=== PATIENT | male | born 1960 | race Caucasian/White ===

== ENCOUNTER 2019-02-12 15:25 | Emergency (ER) | payer OTHER ==
[2019-02-12] MEDS ORDERED: PROCHLORPERAZINE EDISYLATE INJ 10 MG/2 ML VIAL IV ONE (16:52)
[2019-02-12] MEDS ORDERED: DIPHENHYDRAMINE HCL 50 MG/ML VIAL IV ONE (16:52)
[2019-02-12] MEDS ORDERED: NORMAL SALINE 1000 ML 1,000 ML IV ONE (16:53)
[2019-02-12] MEDS ORDERED: KETOROLAC TROMETHAMINE INJ/PF 30 MG/1 ML SDV IV ONE (16:53)
--- NOTE | 2019-02-12 16:54 | ER Document Report ---
ED Medical Screen (RME) - General Chief Complaint: Headache Stated Complaint: HEADACHE Time Seen by Provider: 02/12/19 16:52 Primary Care Provider: EDNA CHAMBERLAIN [Primary Care Provider] - Follow up as needed Mode of Arrival: Ambulatory Information source: Patient Notes: Patient is a 58-year-old male presents emergency department chief complaint of right-sided headache that began at proximately 9:00 this morning. Patient reports had a gradual onset. He reports that he was also diagnosed with a right-sided ear infection this morning and started on antibiotics. Patient does report a history of cluster headaches, states this feels similar to that. Exam: Alert, oriented, answering all questions appropriately. No focal neurological deficits noted. I have greeted and performed a rapid initial assessment of this patient. A comprehensive ED assessment and evaluation of the patient, analysis of test results and completion of the medical decision making process will be conducted by additional ED providers. I have specifically instructed the patient or family members with the patient to immediately return to any nursing staff should anything change in the patient's condition or with their chief complaint. This medical record was dictated with voice recognizing software. There may be grammatical, syntax errors that are unintended. - Related Data Allergies/Adverse Reactions: No Known Allergies Allergy (Verified 02/12/19 15:30) Physical Exam - Vital signs Vitals: Temp Pulse Resp BP Pulse Ox 97.7 F 57 L 18 168/95 H 96 02/12/19 15:31 02/12/19 15:31 02/12/19 15:31 02/12/19 15:31 02/12/19 15:31 Course - Vital Signs Vital signs: Temp Pulse Resp BP Pulse Ox 97.7 F 57 L 18 168/95 H 96 02/12/19 15:31 02/12/19 15:31 02/12/19 15:31 02/12/19 15:31 02/12/19 15:31 Doctor's Discharge - Discharge Referrals: EDNA CHAMBERLAIN [Primary Care Provider] - Follow up as needed
--- NOTE | 2019-02-12 19:56 | ER Document Report ---
HPI - HPI Time Seen by Provider: 02/12/19 16:52 Pain Level: 3 Notes: Patient is a 58-year-old male presents emergency department chief complaint of right-sided headache that began at proximately 9:00 this morning. Patient reports had a gradual onset. He reports that he was also diagnosed with a right-sided ear infection this morning and started on antibiotics. Patient does report a history of cluster headaches, states this feels similar to that. Past Medical History - General Information source: Patient - Social History Smoking Status: Never Smoker Frequency of alcohol use: None Drug Abuse: None Family History: Reviewed & Not Pertinent - Past Medical History Cardiac Medical History: Reports: Hx Hypertension Neurological Medical History: Reports: Hx Migraine Surgical Hx: Negative - Immunizations Immunizations up to date: Yes Vertical Provider Document - CONSTITUTIONAL Notes: PHYSICAL EXAMINATION: GENERAL: Well-appearing, well-nourished and in no acute distress. HEAD: Atraumatic, normocephalic. EYES: Pupils equal round and reactive to light, extraocular movements intact, sclera anicteric, conjunctiva are normal. ENT: Nares patent, oropharynx clear without exudates. Moist mucous membranes. Right TM bulging, erythematous with fluid behind the tympanic membrane. No m astoid tenderness. NECK: Normal range of motion, supple without lymphadenopathy LUNGS: Breath sounds clear to auscultation bilaterally and equal. No wheezes rales or rhonchi. HEART: Regular rate and rhythm without murmurs ABDOMEN: Soft, nontender, nondistended abdomen. No guarding, no rebound. No masses appreciated. Musculoskeletal: Normal range of motion, no pitting or edema. No cyanosis. NEUROLOGICAL: Cranial nerves grossly intact. Normal speech, normal gait. Normal sensory, motor exams PSYCH: Normal mood, normal affect. SKIN: Warm, Dry, normal turgor, no rashes or lesions noted. Course - Re-evaluation Re-evalutation: Patient's headache was relieved with medications here in the emergency department, he was still awaiting bed placement when he came to let us know he was ready to go as his symptoms had resolved. He was brought into a triage room where additional assessment was performed. He now reports he did not get treatment for the otitis media. I will start him on amoxicillin for this. Strict ED return precautions were discussed, patient and spouse verbalized understanding and agreement with plan. The patient's emergency department workup and current diagnosis were explained to the patient and or family. Follow-up instructions were provided. Medications if prescribed were discussed. Instructions for when to return to the emergency department including specific worrisome symptoms were discussed with the patient and/or family. - Vital Signs Vital signs: Temp Pulse Resp BP Pulse Ox 97.7 F 57 L 18 168/95 H 96 02/12/19 15:31 02/12/19 15:31 02/12/19 15:31 02/12/19 15:31 02/12/19 15:31 Discharge - Discharge Clinical Impression: Headache Qualifiers: Headache type: unspecified Headache chronicity pattern: unspecified pattern Intractability: not intractable Qualified Code(s): R51 - Headache Otitis media Qualifiers: Otitis media type: unspecified Chronicity: acute Qualified Code(s): H66.90 - Otitis media, unspecified, unspecified ear Condition: Stable Disposition: HOME, SELF-CARE Additional Instructions: Otitis Media You have a middle ear infection (otitis media). This is usually a complication of a cold or sore throat. The middle ear cavity becomes filled with infection. Pressure and stretching of the ear drum cause pain. Antibiotics are required. A 10 day course is usually prescribed. A decongestant may be recommended if you have a "runny nose." You may need anesthetic drops or other pain medication. A follow-up exam may be recommended to make sure the infection has completely cleared. If the ear begins to drain, it means the ear drum has ruptured. This will usually heal spontaneously. However, it means you should keep the ear dry until re-examined by a doctor. Call the physician or return for examination at once if there is severe headache, stiff neck, confusion, increasing fever, or dizziness. You should improve significantly within two days. If you're not better, call the doctor. You have been seen in the Emergency Department (ED) for a headache. Please use Tylenol (acetaminophen) or Motrin (ibuprofen) as needed for symptoms, but only as written on the box. As we have discussed, please follow up with your primary care doctor as soon as possible regarding today's ED visit and your headache symptoms. Call your doctor or return to the ED if you have a worsening headache, sudden and severe headache, confusion, slurred speech, facial droop, weakness or numbness in any arm or leg, extreme fatigue, or other symptoms that concern you. Prescriptions: Amoxicillin 1 tab PO TID #30 tab Referrals: LOCALMD,NO [NO LOCAL MD] - Follow up as needed
[2019-02-12 20:10] VITALS: BP 166/92
== END 2019-02-12 20:14 | disposition home or self-care (01) ==
LOC: ER 15:25
DX: R51 Headache (principal); H66.90 Otitis media, unspecified, unspecified ear; I10 Essential (primary) hypertension
CPT/HCPCS: J1200; J1885; J0780; J7030; 96361; 96374; 96375; 99283

== ENCOUNTER 2019-02-20 08:30 | Emergency (ER) | payer OTHER ==
[2019-02-20] MEDS ORDERED: KETOROLAC TROMETHAMINE INJ/PF 30 MG/1 ML SDV IV ONE (09:14)
[2019-02-20] MEDS ORDERED: NORMAL SALINE 1000 ML 1,000 ML IV ONE (09:14)
[2019-02-20] MEDS ORDERED: DIPHENHYDRAMINE HCL 50 MG/ML VIAL IV ONE (09:14)
[2019-02-20] MEDS ORDERED: PROCHLORPERAZINE EDISYLATE INJ 10 MG/2 ML VIAL IV ONE (09:15)
--- NOTE | 2019-02-20 09:58 | ER Document Report ---
Entered by MILAN SCHAFFER SCRIBE 02/20/19 0914 Acting as scribe for:CINDY PETTY MD ED Headache - General Stated Complaint: HEADACHE Time Seen by Provider: 02/20/19 09:01 Primary Care Provider: DAE DAO PA-C [Primary Care Provider] - Follow up in 3-5 days Mode of Arrival: Ambulatory Information source: Patient Notes: 58 year old male with cluster headaches that presents to the emergency department today with complaints of a cluster headache. Patient states until recently, he had not had any cluster headaches for x8-10 years. Patient states the last time he had cluster headaches he seemed to get them every day for around a month. Patient reports that he was prescribed intranasal zolmitriptan in the past for these headaches and he reports that it worked remarkably well. Patient was seen here for a cluster headache x8 days ago and he then saw his PCP who prescribed him zolmitriptan again, but only gave him a box of six. Patient states this medicine has been working again for his cluster headaches, but he has used up all 6 of the treatments already. - Related Data Allergies/Adverse Reactions: No Known Allergies Allergy (Verified 02/12/19 15:30) Past Medical History - General Information source: Patient - Social History Smoking Status: Former Smoker Cigarette use (# per day): No Frequency of alcohol use: None Drug Abuse: None Lives with: Family Family History: Reviewed & Not Pertinent - Past Medical History Cardiac Medical History: Reports: Hx Hypertension Neurological Medical History: Reports: Other - cluster headaches Surgical Hx: Negative - Immunizations Immunizations up to date: Yes Review of Systems - Review of Systems Constitutional: No symptoms reported EENT: No symptoms reported Cardiovascular: No symptoms reported Respiratory: No symptoms reported Gastrointestinal: No symptoms reported Genitourinary: No symptoms reported Male Genitourinary: No symptoms reported Musculoskeletal: No symptoms reported Skin: No symptoms reported Hematologic/Lymphatic: No symptoms reported Neurological/Psychological: See HPI, Headaches -: Yes All other systems reviewed and negative Physical Exam - Vital signs Vitals: Pulse Resp BP Pulse Ox 43 L 18 161/89 H 99 02/20/19 08:47 02/20/19 08:47 02/20/19 08:47 02/20/19 08:47 - Notes Notes: Physical Exam: General: Alert, appears very uncomfortable. HEENT: Normocephalic. Atraumatic. PERRL. Extraocular movements intact. Oropharynx clear. TMs are clear bilaterally, no external canal erythema. Tenderness with percussion surrounding the zygomatic arch on the right, reports feeling pain into his jaw/teeth. Right sided temporal musculature tenderness with palpation. Neck: Supple. Non-tender. Respiratory: No respiratory distress. Clear and equal breath sounds bilaterally. Cardiovascular: Regular rate and rhythm. Abdominal: Normal Inspection. Non-tender. No distension. Normal Bowel Sounds. Back: No gross abnormalities. Extremities: Moves all four extremities. Upper extremities: Normal inspection. Normal ROM. Lower extremities: Normal inspection. No edema. Normal ROM. Neurological: Normal cognition. AAOx4. Normal speech. Photophobia. Psychological: Normal affect. Normal Mood. Skin: Warm. Dry. Normal color. Course - Re-evaluation Re-evalutation: 02/20/19 10:41 The patient reports his headache is somewhat improved, but he still has pain on the right side, particularly along his zygomatic bone where it is tender to palpate, and pain going into his teeth. We will try a pain management dose of ketamine, as some of his symptoms are suspicious for trigeminal neuralgia. 02/20/19 12:08 Patient feels much better after the ketamine. The right zygomatic region is still little tender to palpate but is much better. There is no tenderness to palpate the right TMJ. The patient would like some additional Zomig to take, since he states that seems to take his headaches away quickly. - Vital Signs Vital signs: Temp Pulse Resp BP Pulse Ox 66 16 162/99 H 99 02/20/19 11:28 02/20/19 11:28 02/20/19 11:28 02/20/19 11:28 - EKG Interpretation by Hi EKG shows normal: Sinus rhythm, [place], Intervals, QRS Complexes, ST-T Waves Rate: Normal - 50 Rhythm: Arrthymia Discharge - Discharge Clinical Impression: Migraine headache Qualifiers: Migraine type: unspecified Status migrainosus presence: without status migrainosus Intractability: not intractable Qualified Code(s): G43.909 - Migraine, unspecified, not intractable, without status migrainosus Condition: Stable Disposition: HOME, SELF-CARE Additional Instructions: Migraine Headache: The physician feels that your symptoms are due to a migraine attack. M igraines are caused by changes in the blood vessels of the head. Arteries go into spasm, often causing warning symptoms that a headache may begin soon. As the spasm goes away, the vessels dilate and throb, causing the pounding pain of a migraine headache. Migraines often cause nausea and vomiting. The treatment of headaches varies with severity and cause of pain. Not all headaches need pain shots -- in fact, there is evidence that using narcotics for headaches may make them worse in the long run. The physician will determine the therapy that's in your best interest for this particular headache. Medications are available that may prevent migraines, or stop them as they first occur. If one medication is not helpful, try another. If migraines are frequent, be patient -- follow the doctor's recommendations. Call the physician if you are worsening, or if new symptoms arise. Follow-up with your primary care provider to manage your cluster migraines. You may benefit from taking gabapentin to help manage your headaches. Do not take more than 3 doses of Zomig in any 30-day period. RETURN TO THE EMERGENCY ROOM IF ANY NEW OR WORSENING SYMPTOMS. Prescriptions: Zolmitriptan [Zomig] 5 mg PO ASDIR PRN #3 tablet PRN Reason: Referrals: DAE DAO PA-C [Primary Care Provider] - Follow up in 3-5 days Scribe Attestation: 02/20/19 09:59 I personally performed the services described in the documentation, reviewed and edited the documentation which was dictated to the scribe in my presence, and it accurately records my words and actions. I personally performed the services described in the documentation, reviewed and edited the documentation which was dictated to the scribe in my presence, and it accurately records my words and actions.
[2019-02-20] MEDS ORDERED: KETAMINE HCL INJ 500 MG/10 ML VIAL IV ONE (10:40)
[2019-02-20 12:40] VITALS: BP 164/74
--- NOTE | 2019-02-20 19:07 | EKG REPORT ---
SEVERITY:- ABNORMAL ECG - SINUS ARRHYTHMIA 39-59 PROBABLE LEFT VENTRICULAR HYPERTROPHY : Confirmed by: Rodolfo Rausch MD 20-Feb-2019 19:06:37
== END 2019-02-20 12:42 | disposition home or self-care (01) ==
LOC: ER 08:30
DX: G43.909 Migraine, unspecified, not intractable, without status migrainosus (principal); Z79.899 Other long term (current) drug therapy; Z87.891 Personal history of nicotine dependence; I10 Essential (primary) hypertension
CPT/HCPCS: 93005; 99283; 96361; 96374; 96375; 93010; J1200; J3490; J1885; J0780; J7030